=== PATIENT | female | born 1975 | race Caucasian/White ===

== ENCOUNTER → 2016-04-13 | Outpatient (CLI) | payer OTHER | END | disposition home or self-care (01) | LOC: LABWHC1 07:16 | PROVIDERS: ATTEND Internal Medicine Endocrinology, Diabetes & Metabolism | DX: C73 Malignant neoplasm of thyroid gland (principal); E89.0 Postprocedural hypothyroidism | CPT/HCPCS: 36415; 84439; 84443 ==

== ENCOUNTER → 2016-07-13 | Outpatient (CLI) | payer OTHER ==
[2016-07-13 08:25] LABS: Anisocytosis Slight; Basophils % (A) 1 %; CH 22.5; CHCM 29.3; Eosinophils # (A) 0.1 k/uL (0-0.7); Eosinophils % (A) 2 %; HCT 32.7 % (34.0-46.0); HDW 2.99; HGB 9.7 gm/dL (11.4-16.0); Hypochromasia Marked; Luc # (Auto) 0.06; Luc % (Auto) 2; Lymphocytes # (A) 1.4 k/uL (1.0-4.8); Lymphocytes % (A) 43 %; MCH 22.8 pg (25.0-35.0); MCHC 29.6 g/dL (31.0-37.0); MCV 77.2 fL (80.0-100.0); Mean Platelet Volume 6.4; Microcytosis Slight; Monocytes # (A) 0.2 k/uL (0-1.0); Monocytes % (A) 5 %; Neutrophils # (A) 1.5 k/uL (1.3-7.7); Neutrophils % (A) 48 %; RBC 4.24 m/uL (3.80-5.40); RDW 16.2 % (11.5-15.5); WBC 3.2 k/uL (3.8-10.6); WBC (Perox) 3.32
[2016-07-13 08:37] LABS: ALT 27 U/L (9-52); AST 20 U/L (14-36); Alkaline Phosphatase 37 U/L (38-126); Anion Gap 7 mmol/L; Blood Urea Nitrogen 11 mg/dL (7-17); Calcium 8.6 mg/dL (8.4-10.2); Carbon Dioxide 26 mmol/L (22-30); Chloride 106 mmol/L (98-107); Cholesterol 177 mg/dL (<200); Glucose 88 mg/dL (74-99); HDL Cholesterol 84 mg/dL (40-60); Non-African American GFR(MDRD) >60 (>60 ml/min/1.73 sqM); Potassium 4.5 mmol/L (3.5-5.1); Sodium 139 mmol/L (137-145); Total Bilirubin 0.6 mg/dL (0.2-1.3); Total Protein 6.9 g/dL (6.3-8.2); Triglycerides 79 mg/dL (<150)
== END | disposition home or self-care (01) ==
LOC: LABWHC1 07:26
PROVIDERS: ATTEND Nurse Practitioner Adult Health
DX: Z00.00 Encounter for general adult medical examination without abnormal findings (principal)
CPT/HCPCS: 36415; 80053; 80061; 82306; 85025

== ENCOUNTER → 2016-07-30 | Outpatient (CLI) | payer OTHER ==
--- NOTE | 2016-08-01 09:36 | MM ---
Reason for exam: screening (asymptomatic). Baseline mammogram. History: Patient history of other cancer. Physical Findings: Nurse did not find any significant physical abnormalities on exam. MG 3D Screening Mammo W/Cad Bilateral CC and MLO view(s) were taken. The breast tissue is heterogeneously dense. This may lower the sensitivity of mammography. There is no discrete abnormality. These results were verbally communicated with the patient and result sheet given to the patient on 07/30/16. ASSESSMENT: Negative, BI-RAD 1 RECOMMENDATION: Routine screening mammogram of both breasts in 1 year.
--- NOTE | 2016-08-06 16:00 | ECHOF ---
Referral Reason:SYNCOPE MEASUREMENTS -------- HEIGHT: 165.1 cm WEIGHT: 70.3 kg BP: 120/60 RVIDd: 2.9 cm (< 3.3) IVSd: 1.0 cm (0.6 - 1.1) LVIDd: 4.1 cm (3.9 - 5.3) LVPWd: 1.0 cm (0.6 - 1.1) IVSs: 1.2 cm LVIDs: 3.3 cm LVPWs: 1.2 cm LA Diam: 2.8 cm (2.7 - 3.8) LAESV Index (A-L): 22.82 ml/m Ao Diam: 3.0 cm (2.0 - 3.7) AV Cusp: 1.8 cm (1.5 - 2.6) LA Diam: 3.3 cm (2.7 - 3.8) MV EXCURSION: 22.777 mm (> 18.000) MV EF SLOPE: 133 mm/s (70 - 150) EPSS: 0.2 cm MV E Spencer: 0.82 m/s MV DecT: 199 ms MV A Spencer: 0.51 m/s MV E/A Ratio: 1.60 RAP: 5.00 mmHg RVSP: 14.79 mmHg FINDINGS -------- Sinus rhythm. This was a technically good study. LV size, wall thickness and systolic function are normal, with an EF greater than 55%. The right ventricle is normal in size. Normal LA size by volume 22+/-6 ml/m2. The right atrial size is normal. The aortic valve is trileaflet, and appears structurally normal. No aortic stenosis or regurgitation. Mild mitral annular calcification present. There is trace mitral regurgitation. Mild tricuspid regurgitation present. There is no evidence of pulmonary hypertension. The right ventricular systolic pressure, as measured by Doppler, is 14.79mmHg. There is no pulmonic regurgitation present. The aortic root size is normal. There is no pericardial effusion. CONCLUSIONS -------- 1. LV size, wall thickness and systolic function are normal, with an EF greater than 55%. 2. Mild mitral annular calcification present. 3. There is trace mitral regurgitation. 4. Mild tricuspid regurgitation present. 5. There is no evidence of pulmonary hypertension. 6. The right ventricular systolic pressure, as measured by Doppler, is 14.79mmHg. 7. There is no pulmonic regurgitation present. 8. The aortic root size is normal. 9. There is no pericardial effusion. ENGAGEMENT SPECIALIST: Bharti Clayton RDCS
== END | disposition home or self-care (01) ==
LOC: RADMAMWWP 13:56
PROVIDERS: ATTEND Family Medicine
DX: Z12.31 Encounter for screening mammogram for malignant neoplasm of breast (principal); I08.1 Rheumatic disorders of both mitral and tricuspid valves
CPT/HCPCS: 93306; 77063; G0202

== ENCOUNTER → 2016-08-12 | Outpatient (CLI) | payer OTHER | END | disposition home or self-care (01) | LOC: LABWHC1 07:25 | PROVIDERS: ATTEND Internal Medicine Endocrinology, Diabetes & Metabolism | DX: C73 Malignant neoplasm of thyroid gland (principal); E89.0 Postprocedural hypothyroidism | CPT/HCPCS: 36415; 84432; 84439; 84443; 86800 ==

== ENCOUNTER 2016-08-27 10:29 | Day surgery (SDC) | payer OTHER ==
[2016-08-21 12:28] VITALS: BMI 25.9
[~2016-08-27 10:29] MED LIST: SODIUM CHLORIDE 0.9% 1,000 ML IV SCH
[2016-08-27] MEDS ORDERED: SODIUM CHLORIDE 0.9% 500 ML IV ONE (10:48)
[2016-08-27 11:02] VITALS: BP 119/71; RESP 16; TEMP 98.7
[2016-08-27 13:33] VITALS: PULSE 84
--- NOTE | 2016-08-27 13:42 | P.PCN ---
Preoperative Diagnosis: Postoperative Diagnosis: Procedure(s) Performed: Twelve-lead ECG sinus mechanism normal CA narrow QRS normal ST segments and normal QT interval Tilt table test report Tilt table test performed per protocol Normal heart rate and blood pressure response to upright tilting No evidence for neurocardiogenic syncope or dysautonomia Implants: Indications for Procedure: Operative Findings: Description of Procedure:
== END 2016-08-27 13:54 | disposition home or self-care (01) ==
LOC: CATHEP 10:29
PROVIDERS: ATTEND Internal Medicine Clinical Cardiac Electrophysiology
DX: R55 Syncope and collapse (principal); R00.2 Palpitations; R53.83 Other fatigue; Z82.49 Family history of ischemic heart disease and other diseases of the circulatory system; C73 Malignant neoplasm of thyroid gland; Z87.891 Personal history of nicotine dependence; Z79.899 Other long term (current) drug therapy
CPT/HCPCS: 81025; 93005; 93660

== ENCOUNTER → 2017-09-24 | Outpatient (CLI) | payer OTHER ==
[2017-09-24 08:21] LABS: Basophils % (A) 1 %; Eosinophils # (A) 0.1 k/uL (0-0.7); Eosinophils % (A) 3 %; HCT 38.7 % (34.0-46.0); HGB 12.6 gm/dL (11.4-16.0); Lymphocytes # (A) 1.7 k/uL (1.0-4.8); Lymphocytes % (A) 38 %; MCH 29.4 pg (25.0-35.0); MCHC 32.6 g/dL (31.0-37.0); MCV 90.3 fL (80.0-100.0); Mean Platelet Volume 6.9; Monocytes # (A) 0.3 k/uL (0-1.0); Monocytes % (A) 7 %; Neutrophils # (A) 2.2 k/uL (1.3-7.7); Neutrophils % (A) 50 %; Platelet Count 261 k/uL (150-450); RBC 4.29 m/uL (3.80-5.40); RDW 13.1 % (11.5-15.5); WBC 4.4 k/uL (3.8-10.6)
[2017-09-24 08:51] LABS: T4, Free (Free Thyroxine) 1.29 ng/dL (0.78-2.19)
[2017-09-24 18:07] LABS: Thyroglobulin <0.20 ng/mL (1.60-59.90)
== END | disposition home or self-care (01) ==
LOC: LABWHC1 07:50
PROVIDERS: ATTEND Internal Medicine Endocrinology, Diabetes & Metabolism
DX: C73 Malignant neoplasm of thyroid gland (principal); D64.9 Anemia, unspecified
CPT/HCPCS: 36415; 84432; 84439; 84443; 85025; 86800

== ENCOUNTER → 2018-09-12 | Outpatient (CLI) | payer OTHER ==
[2018-09-12 17:12] LABS: T4, Free (Free Thyroxine) 1.4 ng/dL (0.80-1.80)
== END | disposition home or self-care (01) ==
LOC: LABWHC1 11:06
PROVIDERS: ATTEND Internal Medicine
DX: C73 Malignant neoplasm of thyroid gland (principal)
CPT/HCPCS: 36415; 84432; 84439; 84443; 86800

== ENCOUNTER → 2019-01-09 | Outpatient (CLI) | payer OTHER ==
[2019-01-09 17:13] LABS: T4, Free (Free Thyroxine) 1.3 ng/dL (0.80-1.80)
== END | disposition home or self-care (01) ==
LOC: LABWHC1 08:03
PROVIDERS: ATTEND Internal Medicine
DX: E89.0 Postprocedural hypothyroidism (principal)
CPT/HCPCS: 36415; 84439; 84443

== ENCOUNTER → 2020-01-24 | Outpatient (CLI) | payer OTHER ==
[2020-01-24 11:15] LABS: T4, Free (Free Thyroxine) 1.2 ng/dL (0.80-1.80)
== END | disposition home or self-care (01) ==
LOC: LABWHC1 07:25
PROVIDERS: ATTEND Internal Medicine
DX: E89.0 Postprocedural hypothyroidism (principal); C73 Malignant neoplasm of thyroid gland
CPT/HCPCS: 36415; 84432; 84439; 84443; 86800

== ENCOUNTER → 2021-01-03 | Outpatient (CLI) | payer OTHER ==
[2021-01-03 16:00] LABS: T4, Free (Free Thyroxine) 1.58 ng/dL (0.800-1.800)
== END | disposition home or self-care (01) ==
LOC: LABWHC1 08:18
PROVIDERS: ATTEND Internal Medicine
DX: C73 Malignant neoplasm of thyroid gland (principal); E89.0 Postprocedural hypothyroidism
CPT/HCPCS: 36415; 84432; 84439; 84443; 86800

== ENCOUNTER 2022-11-30 23:37 | Emergency (ER) | payer OTHER ==
[2022-11-30 23:58] VITALS: BP 145/94; PULSE 89; RESP 18; TEMP 98
--- NOTE | 2022-12-01 00:05 | ED ---
Extremity Problem HPI - General Chief complaint: Extremity Problem,Nontraumatic Stated complaint: left leg injury Time Seen by Provider: 11/30/22 23:47 Source: patient Mode of arrival: ambulatory Limitations: no limitations - History of Present Illness Initial comments: 47 year old female presents emergency department reporting to left calf pain. States that she was attempting to close a window at home. She stepped up on the side of the tub to close a window when she heard a snap in her left calf. She reports that she began having pain which radiated from the heel up to the back of her knee. She has significant pain when she attempts to weight-bear on it. She took some Aleve at home for her symptoms but continued to have pain and therefore presented to the emergency department for evaluation. Patient is unsure if it was possible to have a blood clot. She denies any redness, warmth or swelling. No history of DVT or PE. No history of clotting disorders. Denies any ankle or knee pain. No falls. No other alleviating, precipitating or modifying factors - Related Data Home Medications Medication Instructions Recorded Confirmed Cranberry Fruit Concentrate 900 mg PO DAILY 08/21/16 08/27/16 [Cranberry] Fish Oil/Dha/Epa [Fish Oil 1,200 1 each PO DAILY 08/21/16 08/27/16 mg Fish Oil] Cara 500 mg PO DAILY 08/21/16 08/27/16 L.acidoph,Paracasei, B.lactis 1 each PO DAILY 08/21/16 08/27/16 [Probiotic] Levothyroxine Sodium [Synthroid] 112 mcg PO DAILY 08/21/16 08/27/16 Magnesium Oxide [Mag-Ox] 250 mg PO DAILY 08/21/16 08/27/16 Multivitamin with Iron 1 each PO DAILY 08/21/16 08/27/16 [Multivitamins with Iron] Tumeric Bromelain PO DAILY 08/21/16 valACYclovir HCL [Valtrex] 500 mg PO DAILY 08/21/16 08/27/16 Allergies Allergy/AdvReac Type Severity Reaction Status Date / Time No Known Allergies Allergy Verified 11/30/22 23:39 Review of Systems ROS Statement: Those systems with pertinent positive or pertinent negative responses have been documented in the HPI. ROS Other: All systems not noted in ROS Statement are negative. Past Medical History Past Medical History: Cancer Additional Past Medical History / Comment(s): HX of Thyroid CA;HX Herpes; see DR Bentley's H&P History of Any Multi-Drug Resistant Organisms: None Reported Additional Past Surgical History / Comment(s): Thyroidectomy Past Anesthesia/Blood Transfusion Reactions: Family History of Problems w/ Anesthesia, Postoperative Nausea & Vomiting (PONV) Additional Past Anesthesia/Blood Transfusion Reaction / Comment(s): states mother's heart stopped during anesthesia Past Psychological History: No Psychological Hx Reported Smoking Status: Former smoker Past Alcohol Use History: None Reported Past Drug Use History: None Reported - Past Family History Mother Family Medical History: No Reported History General Exam Limitations: no limitations General appearance: alert, in no apparent distress Extremities exam: Present: other (Patient has tenderness to palpation of the posterior calf, especially at the insertion of the Achilles. She does have significant pain with dorsiflexion on the left. No identifiable deformity) Neurological exam: Present: alert, oriented X3, CN II-XII intact Psychiatric exam: Present: normal affect, normal mood Skin exam: Present: warm, dry, intact, normal color. Absent: rash Course Vital Signs 11/30/22 23:40 Temperature 98 F Pulse Rate 89 Respiratory 18 Rate Blood Pressure 145/94 O2 Sat by Pulse 98 Oximetry Medical Decision Making - Medical Decision Making Was pt. sent in by a medical professional or institution ([facility], SIGN BUILDER, urgent care, hospital, or prison...) When possible be specific @ -No Did you speak to anyone other than the patient for history (EMS, parent, family, police, friend...)? What history was obtained from this source @ -No Did you review nursing and triage notes (agree or disagree)? Why? @ -I reviewed and agree with nursing and triage notes Were old charts reviewed (outside hosp., previous admission, EMS record, old EKG, old radiological studies, urgent care reports/EKG's, prison records)? Report findings @ -No old charts were reviewed Differential Diagnosis (chest pain, altered mental status, abdominal pain women, abdominal pain men, vaginal bleeding, weakness, fever, dyspnea, syncope, headache, dizziness, GI bleed, back pain, seizure, CVA, palpatations, mental health, musculoskeletal)? @ -Differential Musculoskeletal Muscular strain, contusion, ligament sprain, fracture, arthritis, septic arthritis, bursitis, cellulitis, muscle spasm, nerve compression, DVT, arterial occlusion, herpes zoster, electrolyte abnormality, tumor.... This is not meant to be in all inclusive list EKG interpreted by me (3pts min.). @ -None X-rays interpreted by me (1pt min.). @ -None done CT interpreted by me (1pt min.). @ -None done U/S interpreted by me (1pt. min.). @ -None done What testing was considered but not performed or refused? (CT, X-rays, U/S, labs)? Why? @ -Ultrasound was considered however patient has sudden onset of pain after straining her left leg which is more consistent with Achilles injury What meds were considered but not given or refused? Why? @ -Pain medications were offered however patient refused Did you discuss the management of the patient with other professionals (professionals i.e. , PA, SIGN BUILDER, lab, RT, psych nurse, social service director, mechanical meter tester, teacher, administrative hearing officer, piano case and bench assembler)? Give summary @ -No Was smoking cessation discussed for >3mins.? @ -No Was critical care preformed (if so, how long)? @ -No Were there social determinants of health that impacted care today? How? (Homelessness, low income, unemployed, alcoholism, drug addiction, transportation, low edu. Level, literacy, decrease access to med. care, prison, rehab)? @ -No Was there de-escalation of care discussed even if they declined (Discuss DNR or withdrawal of care, Hospice)? DNR status @ -No What co-morbidities impacted this encounter? (DM, HTN, Smoking, COPD, CAD, Cancer, CVA, ARF, Chemo, Hep., AIDS, mental health diagnosis, sleep apnea, morbid obesity)? @ -None Was patient admitted / discharged? Hospital course, mention meds given and route, prescriptions, significant lab abnormalities, going to OR and other pertinent info. @ -Upon arrival patient was placed into room 29. Thorough history and physical exam was performed. Patient's symptoms are consistent with concern for Achilles tendinitis versus Achilles tear. I did offer the patient something for pain control however she refused. I did offer bracing the patient however she was agreeable to nonweightbearing status at this time. She was provided with a set of crutches. Patient will be discharged home and is instructed to rest, ice and elevate the extremity. Follow up with the orthopedic surgeon for further evaluation. Return for any new or worsening symptoms. Patient was agreeable to plan and discharged in stable condition Undiagnosed new problem with uncertain prognosis? @ -Yes Drug Therapy requiring intensive monitoring for toxicity (Heparin, Nitro, Insulin, Cardizem)? @ -No Were any procedures done? @ -No Diagnosis/symptom? @ -Acute left calf pain, suspected Achilles tendinitis Acute, or Chronic, or Acute on Chronic? @ -Acute Uncomplicated (without systemic symptoms) or Complicated (systemic symptoms)? @ -Uncomplicated Side effects of treatment? @ -No Exacerbation, Progression, or Severe Exacerbation? @ -No Poses a threat to life or bodily function? How? (Chest pain, [place], [place], pneumonia, PE, COPD, DKA, ARF, appy, cholecystitis, CVA, Diverticulitis, Homicidal, Suicidal, threat to staff... and all critical care pts) @ -No Disposition Clinical Impression: Achilles tendon injury, Pain of left calf Disposition: HOME SELF-CARE Condition: Stable Instructions (If sedation given, give patient instructions): Achilles Tendinitis (ED) Additional Instructions: Please rest, ice and elevate the extremity. Do not weight bear. Use the crutches for ambulation. Alternate 650 mg of Tylenol with 600 mg of Motrin every 4 hours. Follow up with the orthopedic office as they may perform further imaging Is patient prescribed a controlled substance at d/c from ED?: No Referrals: None,Stated [Primary Care Provider] - 1-2 days Renee Shelton DO [Doctor of Osteopathic Medicine] - 1-2 days Time of Disposition: 00:05
== END 2022-12-01 00:39 | disposition home or self-care (01) ==
LOC: EC 23:37
DX: M76.62 Achilles tendinitis, left leg (principal); Z87.891 Personal history of nicotine dependence
CPT/HCPCS: 99283

== ENCOUNTER → 2023-04-01 | Outpatient (CLI) | payer OTHER ==
[2023-04-01 17:13] LABS: BUN/Creat Ratio 15.18 Ratio (12.00-20.00); Blood Urea Nitrogen 16.7 mg/dL (9.0-27.0); Calcium 9.4 mg/dL (8.7-10.3); Carbon Dioxide 23.8 mmol/L (21.6-31.8); Chloride 104 mmol/L (96-109); Glucose 94 mg/dL (70-110); Potassium 5.1 mmol/L (3.5-5.5); Sodium 138 mmol/L (135-145); T4, Free (Free Thyroxine) 1.92 ng/dL (0.80-1.80)
== END | disposition home or self-care (01) ==
LOC: LABWHC1 10:29
PROVIDERS: ATTEND Internal Medicine
DX: C73 Malignant neoplasm of thyroid gland (principal); E89.0 Postprocedural hypothyroidism; E55.9 Vitamin D deficiency, unspecified
CPT/HCPCS: 36415; 80048; 82306; 84432; 84439; 84443; 86800

== ENCOUNTER → 2024-04-12 | Outpatient (CLI) | payer OTHER ==
[2024-04-12 11:14] LABS: T4, Free (Free Thyroxine) 1.49 ng/dL (0.80-1.80)
== END | disposition home or self-care (01) ==
LOC: LABWHC1 07:16
PROVIDERS: ATTEND Internal Medicine
DX: C73 Malignant neoplasm of thyroid gland (principal); E89.0 Postprocedural hypothyroidism; E55.9 Vitamin D deficiency, unspecified
CPT/HCPCS: 36415; 82306; 84432; 84439; 84443; 86800